=== PATIENT | male | born 1985 | race African-American/Black ===

== ENCOUNTER → 2016-10-25 | Emergency (ER) | payer MEDICAID | LOC: ER 11:14 | DX: S96.901A Unspecified injury of unspecified muscle and tendon at ankle and foot level, right foot, initial encounter (principal); Y93.67 Activity, basketball; Y99.9 Unspecified external cause status; Y92.89 Other specified places as the place of occurrence of the external cause | CPT/HCPCS: 29515; 73610; 99284; Z7610 ==